=== PATIENT | male | born 1980 | race Caucasian/White ===

== ENCOUNTER 2019-02-17 15:04 | Observation (INO) | payer SELFPAY ==
[~2019-02-17] VITALS: Ht 182.9 cm; Wt 91.2 kg
--- NOTE | ~2019-02-17 | DS ---
PATIENT:LARA SANTOS :84 MEDICAL RECORD: [id number] DISCHARGE SUMMARY ADMISSION DATE: 02/17/19 DISCHARGE DATE: 02/18/19 DIAGNOSES: 1. Gastroesophageal reflux disease. 2. Chest pain. 3. Family history of coronary artery disease. HOSPITAL COURSE: Mr. Santos presented with chest pain; however, troponins were normal. EKG was normal. GI directed medication had relief of the chest pain. He was discharged home. He does have a very strong family history of coronary artery disease. We will perform stress testing with [facility] as an outpatient. TRANSINT:[id number] Voice Confirmation ID: [id number] DOCUMENT ID: [id number] TRAVIS TOMLINSON MD CC: [id number] DICTATION DATE: 02/18/19 1143 SHOE REPAIRMAN: 02/18/192031 DIS IN 02/18/19 [facility] [address] [place] [address]
--- NOTE | ~2019-02-17 | HP ---
PATIENT: LARA SANTOS MEDICAL RECORD: [id number] ACCOUNT: [id number] LOCATION:[address] : 84 ADMISSION DATE: 02/17/19 PCP: MARGARITA QUINTEROS DO HISTORY AND PHYSICAL EXAMINATION ADMITTING DIAGNOSES: 1. Chest pain. 2. Family history of coronary artery disease. 3. Gastroesophageal reflux disease. HISTORY OF PRESENT ILLNESS: Mr. Santos has a very strong family history of coronary artery disease. He has been having increasing episodes of chest discomfort. He is concerned that this is cardiac. He as well has GERD and is on no GI directed medication. His EKGs are normal. Troponin is normal. PHYSICAL EXAMINATION: GENERAL APPEARANCE: Well-nourished, well-developed, appears stated age. Level of distress, comfortable. PSYCHIATRIC: Mental status, alert, normal affect. Orientation, oriented to time, place and person. EYES: Lids and conjunctiva, noninjected. No discharge, no pallor. ENT: Lips, teeth, gums, normal dentition. Oropharynx, no cyanosis, no pallor. NECK: Carotid arteries, bilateral normal upstroke, no bruits, no thrills. JUGULAR VEINS: No jugular venous pressure or distention. CERVICAL LYMPH NODES: Nontender, nonenlarged. THYROID: Not enlarged. Nontender. No nodules. LUNGS: Respiratory effort, unlabored. CHEST: Normal curvature. No thoracic deformity. No chest wall tenderness. Percussion, resonant. Auscultation, clear. No wheezes, no rales, no rhonchi. CARDIOVASCULAR: Precordial exam, nondisplaced. No heaves or pericardial thrills. Rate and rhythm, regular. Heart sounds, normal S1, normal S2. No S3, no gallop, no rub. Systolic murmur, not heard. Diastolic murmur, not heard. EXTREMITIES: No cyanosis, no edema. Peripheral pulses, full and equal in all extremities, except as noted. No bruits appreciated. ABDOMEN: Soft, nondistended. Normal aorta. No bruit. Nontender. No masses. Liver, nontender, no hepatomegaly. Spleen, nontender, no splenomegaly. MUSCULOSKELETAL: No joint tenderness. No joint swelling. No erythema. NEUROLOGICAL: Normal gait, normal strength, normal tone. SKIN: Warm and dry. OVERALL IMPRESSION: Chest pain with very strong family history of coronary artery disease, very well might be gastroesophageal reflux disease. We will start GI directed medication. Observe overnight, repeat troponin in the morning, most likely stress test as an outpatient. TRANSINT:[id number] Voice Confirmation ID: [id number] DOCUMENT ID: [id number] HISTORY AND PHYSICAL [id number] LARA SANTOS JEFFREY MD CC: [id number] DICTATION DATE: 02/18/19 1143 TELEPHONE INTERCEPTOR OPERATOR: 02/18/19 1241 DIS IN 02/18/19 [place] [id number] [place] [id number]
[2019-02-17 15:44] LABS: BASOPHILS 0.5 % (0-2); EOSINOPHILS 1.7 % (0-7); HEMATOCRIT 41.8 % (42.0-54.0); HEMOGLOBIN 15.1 g/dL (13.5-17.5); IMMATURE GRANULOCYTES 0.2 % (0-5); LYMPHOCYTES 29.9 % (15-50); MCH 31.1 pg (26.0-34.0); MCHC 36.1 g/dL (31.0-37.0); MCV 86.2 fL (80.0-100.0); MEAN PLATELET VOLUME 9.2 fL (7.4-10.4); MONOCYTES 9.5 % (2-11); NEUTROPHILS 58.2 % (40-80); PLATELET COUNT 210 10x3/uL (130-400); RBC 4.85 10x6/uL (4.20-6.10); RDW 12.6 % (11.5-14.5); WBC 6.5 10x3/uL (4.8-10.8)
[2019-02-17 15:56] LABS: APTT 31.2 SECONDS (22.8-39.4); INR 1.2 (0.85-1.17); PROTIME 14.7 SECONDS (11.6-15.0)
[2019-02-17 16:02] LABS: ALBUMIN 4.3 g/dL (3.4-5.0); ALKALINE PHOSPHATASE 65 U/L (46-116); ALT (SGPT) 39 U/L (10-68); BILIRUBIN - TOTAL 0.43 mg/dL (0.2-1.3); CALC OSMOLALITY 279 mosm/kg (275-300); CALCIUM 9.2 mg/dL (8.5-10.1); CHLORIDE - SERUM 103 mmol/L (98-107); CREATININE - SERUM 1.1 mg/dL (0.6-1.3); GLUCOSE 112 mg/dL (74-106); POTASSIUM - SERUM 3.6 mmol/L (3.5-5.1); PROTEIN - SERUM 7.8 g/dL (6.4-8.2); SODIUM 139 mmol/L (136-145); UREA NITROGEN 14 mg/dL (7-18); eGFR NON AFRICAN AMERICAN 80 mL/min (90-120)
[2019-02-17 16:08] VITALS: BP 117/83
[2019-02-17 16:15] LABS: CKMB 0.7 U/L (0.0-3.6); CREATINE KINASE 110 UL (21-232); MAGNESIUM - SERUM 2.1 mg/dL (1.8-2.4); TROPONIN-I < 0.017 ng/mL (0.000-0.060)
[2019-02-17 16:26] VITALS: BP 122/83
--- NOTE | 2019-02-17 16:26 | NUR ---
PT STATES THE PRESSURE IN HIS CHEST IS BETTER, BUT NOW HAS A BAD HEADACHE.
[2019-02-17 16:44] VITALS: BP 126/87
--- NOTE | 2019-02-17 18:26 | NUR ---
START TO CALL REPORT TO DANIEL ON THE FLOOR, AND PTS STATES HE DOES NOT WANT TO STAY HE WANTS TO LEAVE. STATES HE IS FEELING MUCH BETTER. NOTIFY DR Chisholm AND JASEN.
--- NOTE | 2019-02-17 18:45 | NUR ---
TRANSFER FROM ER BY W/C. CALL LIGHT IN REACH. WILL CONT. PLAN OF CARE.
[2019-02-17 20:00] VITALS: BP 138/93
[2019-02-17 20:50] LABS: CKMB 0.5 U/L (0.0-3.6); CREATINE KINASE 94 UL (21-232)
[2019-02-17 20:53] LABS: TROPONIN-I < 0.017 ng/mL (0.000-0.060)
--- NOTE | 2019-02-17 21:51 | NUR ---
SPOKE WITH DR TOMLINSON ON THE PHONE, REPORTED PT'S ONGOING BELCHING/BURPING/INDIGESTION. NEW ORDERS RECIEVED.
[2019-02-18] VITALS: BP 131/85
[2019-02-18 01:10] VITALS: BP 131/85; Ht 182.9 cm; Wt 91.2 kg
[2019-02-18 02:46] LABS: BASOPHILS 0.4 % (0-2); EOSINOPHILS 2.3 % (0-7); HEMATOCRIT 38.7 % (42.0-54.0); HEMOGLOBIN 14.2 g/dL (13.5-17.5); LYMPHOCYTES 39.4 % (15-50); MCHC 36.7 g/dL (31.0-37.0); MCV 87.2 fL (80.0-100.0); MEAN PLATELET VOLUME 9.3 fL (7.4-10.4); MONOCYTES 9.5 % (2-11); NEUTROPHILS 48.4 % (40-80); PLATELET COUNT 192 10x3/uL (130-400); RBC 4.44 10x6/uL (4.20-6.10); RDW 12.6 % (11.5-14.5); WBC 5.6 10x3/uL (4.8-10.8)
[2019-02-18 03:16] LABS: CALC OSMOLALITY 280 mosm/kg (275-300); CARBON DIOXIDE 32.2 mmol/L (21.0-32.0); CHLORIDE - SERUM 105 mmol/L (98-107); CKMB 0.6 U/L (0.0-3.6); CREATINE KINASE 108 UL (21-232); CREATININE - SERUM 1.1 mg/dL (0.6-1.3); GLUCOSE 122 mg/dL (74-106); SODIUM 140 mmol/L (136-145); UREA NITROGEN 14 mg/dL (7-18); eGFR NON AFRICAN AMERICAN 80 mL/min (90-120)
[2019-02-18 03:17] LABS: POTASSIUM - SERUM 4.2 mmol/L (3.5-5.1); TROPONIN-I < 0.017 ng/mL (0.000-0.060)
[2019-02-18 04:30] VITALS: BP 118/68
--- NOTE | 2019-02-18 06:00 | NUR ---
PT RESTED BETTER THROUGH THE SHIFT AFTER RECIEVING THE GI MEDS. AT BEDSIDE. NPO UNTIL SEEN BY DR TOMLINSON. SR PER TELEMETRY.
[2019-02-18 08:06] VITALS: BP 117/77
--- NOTE | 2019-02-18 10:16 | NUR ---
REVIEWED DISCHARGE INSTRUCTIONS WITH PT STATES UNDERSTANDING COPY GIVEN DCD SALINE LOCK TO RFA WITH IV CATHETER INTACT SITE FREE OF REDNESS OR EDEMA PT DISCHARGED HOME IN STABLE CONDITION WITH ALL PERSONAL BELONGINGS LEFT WALKING WITH ESCORT
--- NOTE | 2019-02-20 09:00 | MORECARE ---
CASE MANAGEMENT DISCHARGE SUMMARY PATIENT: LARA SANTOS UNIT: [id number] ADM DATE: 02/17/19 AGE: 38 : 84 SEX: M ROOM/BED: D.2114 AUTHOR: BRADLEY WIN PHYSICIAN: REFERRING PHYSICIAN: TRAVIS TOMLINSON MD DATE OF SERVICE: 02/20/19 Discharge Plan Patient Name: [facility]ANT[facility] [facility] 1980 Planned Disposition: Home Anticipated Discharge Date: 02/18/19 Discharge Date: 02/18/2019 Expected LOS: 1 Initial Reviewer: [email or web address] Initial Review Date: 02/20/2019 Generated: 02/20/19 10:00 am Patient Name: LARA SANTOS Page [phone] at 0900 All edits/amendments must be made on the electronic document DICTATION DATE: 02/20/19899 COTTAGE SUPERVISOR: IRINA 02/20/19 09 RPT#: [id number] DC DATE:02/18/19 STATUS: DIS IN [facility] [address] [facility] [place] [address] END OF REPORT
== END 2019-02-18 10:16 | disposition home or self-care (01) ==
LOC: D.ER 15:04 → D.M2 17:56 → OBSVTIME 17:56 → D.M2 02-18 10:16
PROVIDERS: Family Medicine; ADMIT Internal Medicine Interventional Cardiology; ATTEND Internal Medicine Interventional Cardiology
DX: R07.9 Chest pain, unspecified (principal); K21.9 Gastro-esophageal reflux disease without esophagitis; Z82.49 Family history of ischemic heart disease and other diseases of the circulatory system